=== PATIENT | male | born 1990 | race Caucasian/White ===

== ENCOUNTER 2017-03-26 23:22 | Emergency (ER) | payer BC ==
[~2017-03-26] VITALS: Ht 172.7 cm; Wt 2.2 kg
[2017-03-26] MEDS ORDERED: morphine 4 MG/ML VIAL IV STA ×2 (23:27→23:34)
[2017-03-26 23:28] VITALS: Ht 172.7 cm; Wt 2.2 kg
[2017-03-26] MEDS ORDERED: DIPHTH/TET/ACEL PERTUSS (ADULT) 0.5 ML VIAL IM* ONE (23:30)
[2017-03-26] MEDS ORDERED: SOD CHLORIDE 0.9% 1,000 ML IV ONE (23:30)
[2017-03-26] MEDS ORDERED: CEFAZOLIN 1 GM/50 ML (PMX) 50 ML IVPB SCH (23:30)
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
[2017-03-26] MEDS ORDERED: ONDANSETRON 4 MG INJ IV STA (23:34)
[2017-03-26 23:50] LABS: BASOPHIL # 0.1 10^3/ul (0.0-0.1); BASOPHILS % 0.5 % (0.0-2.0); EOSINOPHILS # 0.6 10^3/ul (0.0-0.5); EOSINOPHILS % 4.6 % (0.0-7.0); HEMATOCRIT 47.2 % (42.0-52.0); HEMOGLOBIN 16.5 g/dl (14.0-18.0); LYMPHOCYTES # 4.5 10^3/ul (0.8-2.9); LYMPHOCYTES % 34.5 % (15.0-51.0); MEAN CORPUSCULAR HEMOGLOBIN 31.9 pg (29.0-33.0); MEAN CORPUSCULAR VOLUME 91.3 fl (82.0-101.0); MEAN PLATELET VOLUME 9.9 fl (7.4-10.4); MONOCYTE # 1.2 10^3/ul (0.3-0.9); NEUTROPHIL # 6.6 10^3/ul (1.6-7.5); NEUTROPHILS % 50.9 % (39.0-77.0); PLATELET COUNT 306 10^3/UL (140-415); RED BLOOD COUNT 5.17 10^6/ul (4.70-6.10); RED CELL DISTRIBUTION WIDTH 11.9 % (11.5-14.5)
[2017-03-27] MEDS ORDERED: SOD CHLORIDE 0.9% 1,000 ML IV ONE
[2017-03-27 00:05] LABS: INR 0.95; PROTIME 12.7 Sec (12.2-14.2)
[2017-03-27 00:06] LABS: PARTIAL THROMBOPLASTIN TIME 23.5 Sec (25.0-35.0)
[2017-03-27 00:07] LABS: ALBUMIN 4.2 g/dl (3.3-4.9); ALBUMIN/GLOBULIN RATIO 1.27; BILIRUBIN,INDIRECT 0.1 mg/dl (0-1.1); BILIRUBIN,TOTAL 0.1 mg/dl (0.2-1.3); CALCIUM 9.8 mg/dl (8.4-10.2); CREATININE 1.19 mg/dl (0.61-1.24); POTASSIUM 3.4 mmol/L (3.5-5.1); TOTAL PROTEIN 7.5 g/dl (6.1-8.1)
[2017-03-27] MEDS ORDERED: SOD CHLORIDE 0.9% 100 ML ONE (00:43)
[2017-03-27] MEDS ORDERED: IODIXANOL LOCM 100 ML BTL ONE (00:43)
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
[2017-03-27] MEDS ORDERED: POTASSIUM CHLORIDE (SR) 20 MEQ TAB PO ONE (02:09)
[2017-03-27] MEDS ORDERED: CEPH-443 PO (02:10)
[2017-03-27] MEDS ORDERED: IBUP-1542 PO (02:10)
[2017-03-27 02:33] VITALS: BP 140/60; PULSE 100; RESP 16
--- NOTE | 2017-03-27 07:35 | EN ---
Date/Time of Note Date/Time of Note DATE: 03/27/17 TIME: 07:33 ER Progress Note Patient gave consent to perform laceration repair. Laceration Repair by me: Anesthesia: Total 10 cc 1% lidocaine locally Location: [Right mid lateral to umbilicus laceration and Left humeral laceration] Tendon/Joint/Nerves: No injury Foreign body: None detected after copious irrigation and exploration Technique: 9 4-0 Ethilon Simple Interrupted Sutures of Abdomen and 5 4-0 Ethilon Simple Interrupted Sutures Complexity: No subcutaneous sutures/mucosal repair/ edge excision Post Closure Length: [5] cm of mid abdomen and [3] cm left humerus Patient's bleeding was easily controlled in the department and there is no indication of anemia. Patient is neurovascularly intact. No evidence of compartment syndrome, neurologic injury, vascular injury, open joint, tendon laceration, or foreign body. Patient is appropriate for outpatient follow up. 48 hour wound check. Scar minimization instructions given. Instructed patient to return for suture removal in 7-10 days. Keflex was prescribed to patient for infection prevention. Instructed patient to return to the ED sooner for any worsening symptoms. Follow up with primary care physician in 1-2 days. Patient's questions were answered. Patient understood and agreed with discharge plan. ARNALDO TO PA-C Mar 27, 2017 07:35
== END 2017-03-27 02:36 | disposition home or self-care (01) ==
LOC: FTE 23:22
DX: S31.133A Puncture wound of abdominal wall without foreign body, right lower quadrant without penetration into peritoneal cavity, initial encounter (principal); E87.6 Hypokalemia; R10.31 Right lower quadrant pain; X99.9XXA Assault by unspecified sharp object, initial encounter; Z23 Encounter for immunization
CPT/HCPCS: 12001; 36415; 73060; 74177; 80053; 83690; 85025; 85610; 85730; 86850; 86900; 86901; 90471; 90715; 96374; 96375; 99285; J0690; J2270; J2405; J7030; Q9967

== ENCOUNTER 2017-03-30 16:16 | Emergency (ER) | payer BC ==
[~2017-03-30] VITALS: Ht 172.7 cm; Wt 82.0 kg
[~2017-03-30 16:16] MED LIST: CEPH-443 PO; IBUP-1542 PO
[2017-03-30 16:28] VITALS: Ht 172.7 cm; Wt 82.0 kg
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
== END 2017-03-30 17:47 | disposition home or self-care (01) ==
LOC: FTE 16:16
DX: Z48.01 Encounter for change or removal of surgical wound dressing (principal)
CPT/HCPCS: 99281